=== PATIENT | male | born 1935 | race Caucasian/White ===

== ENCOUNTER 2019-10-16 05:42 | Outpatient (RCR) | payer MEDICARE, SELFPAY | END 2019-11-05 00:01 | LOC: ONCMED 05:42 | PROVIDERS: Family Provider Family Medicine; Visit Provider Internal Medicine Hematology & Oncology | DX: Z51.11 Encounter for antineoplastic chemotherapy (principal); C25.8 Malignant neoplasm of overlapping sites of pancreas; C77.2 Secondary and unspecified malignant neoplasm of intra-abdominal lymph nodes; D72.829 Elevated white blood cell count, unspecified; E11.9 Type 2 diabetes mellitus without complications; Z79.899 Other long term (current) drug therapy; Z79.84 Long term (current) use of oral hypoglycemic drugs | CPT/HCPCS: 80053; 85007; 85025; 96367; 96368; 96372; 96375; 96413; 96415; 96416; 96417; 96523; 99214; J0640; J1100; J1453; J1642 ×2; J2469; J2505; J9206 ×2; J9263 ×2 ==

== ENCOUNTER 2019-11-20 05:51 | Outpatient (RCR) | payer MEDICARE, SELFPAY ==
[2019-11-20 09:45] LABS: Basophils # 0.1 10^3/uL (0.0-0.1); Basophils % 1.1 %; Eosinophils # 0.2 10^3/uL (0.0-0.8); Eosinophils % 4.5 %; Hematocrit 34.8 % (42.0-52.0); Hemoglobin 10.9 g/dL (11.7-16.6); Lymphocytes # 1.4 10^3/uL (0.8-4.8); Lymphocytes % 29.9 %; Mean Corpuscular HGB Conc 31.3 g/dL (30.0-36.0); Mean Corpuscular Hemoglobin 29.7 pg (28.0-34.0); Mean Corpuscular Volume 94.8 fL (80-94); Mean Platelet Volume 10.5 fL (7.4-10.4); Monocytes # 0.4 10^3/uL (0.2-0.9); Monocytes % 9.1 %; Neutrophils # 2.6 10^3/uL (1.8-7.7); Neutrophils % 55.2 %; Nucleated Red Blood Cells % 0 %; Platelet Count 147 10^3/cmm (130-400); Red Blood Count 3.67 10^6/uL (4.1-5.3); Red Cell Distribution Width 14.8 % (12.1-15.1); White Blood Count 4.7 10^3/uL (4.0-10.0)
[2019-11-20 10:07] LABS: Alanine Aminotransferase 27 U/L (0-41); Alkaline Phosphatase 93 IU/L (40-130); Aspartate Amino Transferase 41 U/L (0-40); Blood Urea Nitrogen 12 mg/dL (8-23); Calcium 8.9 mg/Dl (8.8-10.2); Carbon Dioxide 23 mmol/L (22-29); Chloride 105 mmol/L (98-107); Globulin 2.1 g/dL (1.3-4.6); Glucose 103 mg/dL (74-106); Sodium 139 mmol/L (136-145); Total Bilirubin 0.4 mg/dL (0.15-1.2); Total Protein 6.1 g/dL (6.6-8.7)
== END 2019-12-06 23:59 | disposition home or self-care (01) ==
LOC: ONCMED 05:51
PROVIDERS: Family Provider Family Medicine; Visit Provider Internal Medicine Hematology & Oncology
DX: C25.0 Malignant neoplasm of head of pancreas (principal); E11.9 Type 2 diabetes mellitus without complications; D64.9 Anemia, unspecified; Z79.84 Long term (current) use of oral hypoglycemic drugs; Z90.410 Acquired total absence of pancreas; Z92.21 Personal history of antineoplastic chemotherapy
CPT/HCPCS: 80053; 85025; 96374; 99214

== ENCOUNTER 2019-12-20 06:01 | Outpatient (CLI) | payer MEDICARE, SELFPAY | END 2019-12-20 06:02 | disposition home or self-care (01) | LOC: ONCMED 10:23 | PROVIDERS: Family Provider Family Medicine; Visit Provider Internal Medicine Hematology & Oncology | DX: Z76.89 Persons encountering health services in other specified circumstances (principal) ==

== ENCOUNTER 2020-01-17 10:09 | Outpatient (CLI) | payer MEDICARE, SELFPAY ==
--- NOTE | 2020-02-20 14:46 | ONC FU_ITS ---
Dr. Mitchell follow up note Patient: JOHN MOBLEY Unit #: [id number]: 1935 Dicatated By: Najma Mitchell M.D.Date of Visit:Feb 20, 2020 Onc Med Follow-up/Prog Note History of Present Illness: Mr. 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 As per patient CT scan of chest abdomen pelvis done on 07/19/2019 showed no evidence of metastatic disease and previously seen pulmonary nodules are stable Came for follow-up, denies any specific complaints, no fever or chills, no nausea or vomiting, no abdominal pain, no hemoptysis or hematemesis, no jaundice. Medications: Gabapentin 1 Capsule (of 300 mg) Oral t.i.d., LORazepam 0.5 - 1 Tablet (of 1 mg) Oral q 6 hours PRN, metFORMIN HCl 1 Tablet (of 500 mg) Oral b.i.d., Prochlorperazine Maleate 1 Tablet (of 10 mg) Oral q 6 hours, Simvastatin 1 Tablet (of 10 mg) Oral daily Allergies: pollen Review of Systems: Constitutional - Appetite is good and weight is stable. No fever, chills, hot flashes, or night sweats. Energy level is good, ENMT - No sinus congestion/drainage. No mouth sores. No sore throat or difficulty swallowing, Hematologic/Lymphatic - Positive for easy bruising and bleeding, Respiratory - No shortness of breath. No cough. No pleuritic pain or hemoptysis, Cardiovascular - No angina pain. No palpitations, Gastrointestinal - No nausea or vomiting. No heartburn or acid reflux. No diarrhea or constipation. No blood in the stool or black stools. Positive for hemorrhoids, Genitourinary (M) - No dysuria or hematuria. No urinary frequency. No urgency or incontinence, Musculoskeletal - No joint or bone pain, Neurologic - No headache or dizziness. No numbness/paresthesias or other focal neurologic symptoms, Psychiatric - No anxiety or depression. No insomnia. Vital Signs: Performed on Feb 20, 2020 14:26 Height - 67.50 in Weight - 152.0 lbs (HIGH) BSA - 1.81 sq.m BMI - 23.46 Temperature - 96.9 F (LOW) Pulse - 64 /min Respiration - 17 /min BP - 148/83 mm(hg) (HIGH) O2 Sat - 97 % Pain - 0 Performance Status: 0 - Fully active, able to carry on all predisease activities without restrictions. (ECOG) Physical Examination: ENMT - denies any mouth sores, Respiratory - Lungs are clear, Cardiovascular - Regular rate and rhythm, Abdomen - denies any abdominal pain or fullness, Extremities - no visible edema or rash. Lab/Imaging: Test performed on Nov 20, 2019 09:23 Glucose 103 mg/dL BUN 12 mg/dL Creatinine 0.8 mg/dL Cr Clearance (Est) 66.50 mL/min Sodium 139 mmol/L Potassium 4.0 mmol/L Chloride 105 mmol/L CO2 23 mmol/L Calcium 8.9 mg/dL Protein, Total 6.1 g/dL Albumin 4.0 g/dL Globulin 2.1 g/dL Bilirubin, Total 0.4 mg/dL Alkaline Phosphatase 93 IU/L AST (SGOT) 41 IU/L ALT (SGPT) 27 IU/L WBC 4.7 10 3/uL RBC 3.67 10^12/L HGB 10.9 g/dL HCT 34.8 % MCV 94.8 fL MCH 29.7 pg MCHC 31.3 g/dL Platelet Count 147 10^9/L RDW 14.8 % MPV 10.5 fL Lymphocytes 1.4 10^9/L Neutrophils 0.1 10 3/uL Monocytes 0.4 10^9/L Eosinophils 0.2 10^9/L Basophils 0.1 10^9/L Neutrophil % 4.5 % Manual Lymphocytes 29.9 % Manual Monocytes 9.1 % Manual Eosinophils 4.5 % Manual Basophils 1.1 % NRBCs 0.0 /100 WBC Test performed on Nov 07, 2019 10:04 Cholesterol, Total 121 mg/dL HDL Cholesterol 66 mg/dL LDL Cholesterol 39 mg/dL VLDL Cholesterol 16 mg/dL Triglycerides 79 mg/dL Test performed on Oct 14, 2019 08:18 Anion Gap 16.9 Manual Segs % 55 % Manual Bands % 29.0 % Metamyelocytes % 2.0 % CBC Slide Review SLIDE REVIEW PERFORM Platelet Estimate NORMAL Manual Neutrophils Abs 25.1 10 3/cmm Manual Lymphocytes Abs 0.9 10 3/cmm Manual Monocytes Abs 3.0 10 3/cmm Manual Eosinophils Abs 0.2 10 3/cmm Test performed on Sep 30, 2019 08:23 Lymphocyte % 7.8 % Monocyte % 7.5 % Eosinophil % 0.2 % Basophils % 0.6 % Impression: Moderately differentiated adenocarcinoma of pancreatic head, involving duodenum, with pathology questionable low-grade and high-grade dysplasia with focal signet ring features, suspicious for second bile duct cancer status post Whipple's done on 03/21/2019 final pathology report showed Ductal adenocarcinoma, moderately differentiated, size of tumor 1.6 cm pT1c, 2 lymph node positive for cough metastatic disease pN1 Liver biopsy, segment 3, excision shows no evidence of carcinoma. pT1c,N1,Mo next Started on adjuvant chemotherapy with modified dose (20% dose reduction because of advanced age) FOLFIRINOX biweekly ???12 Completed on 10/14/2019 [id number] diabetes on metformin Plan: Discussed with patient regarding his labs white blood count 5.8 hemoglobin 12.4 crit 39 platelets 179,000 CMP within normal limits Clinically, patient is doing well, with no signs symptoms suggestive of recurrence of disease his follow-up lab workup looks reasonable. We'll continue to monitor and he will return to clinic in 3 months with CBC CMP and CA 19???9 and follow-up CT PET scan to assess disease status and pulmonary nodule seen on CT scan of chest done on 07/19/2019 in the meantime continue monthly port maintenance Signed By: Najma Mitchell M.D. <<Signature on File>>
== END 2020-01-17 15:00 | disposition home or self-care (01) ==
PROVIDERS: Family Provider Family Medicine; Visit Provider Internal Medicine Hematology & Oncology
DX: Z01.89 Encounter for other specified special examinations (principal)
CPT/HCPCS: 36591; 96523

== ENCOUNTER 2020-02-20 12:53 | Outpatient (CLI) | payer MEDICARE, SELFPAY ==
[2020-02-20 13:35] LABS: Basophils # 0.1 10^3/uL (0.0-0.1); Basophils % 0.9 %; Eosinophils # 0.2 10^3/uL (0.0-0.8); Eosinophils % 3.6 %; Hemoglobin 12.4 g/dL (11.7-16.6); Lymphocytes % 34.7 %; Mean Corpuscular HGB Conc 31.8 g/dL (30.0-36.0); Mean Corpuscular Hemoglobin 28.9 pg (28.0-34.0); Mean Corpuscular Volume 90.9 fL (80-94); Mean Platelet Volume 9.8 fL (7.4-10.4); Monocytes # 0.5 10^3/uL (0.2-0.9); Monocytes % 8.5 %; Neutrophils % 52.1 %; Nucleated Red Blood Cells % 0 %; Platelet Count 179 10^3/cmm (130-400); Red Blood Count 4.29 10^6/uL (4.1-5.3); Red Cell Distribution Width 13.2 % (12.1-15.1); White Blood Count 5.8 10^3/uL (4.0-10.0)
[2020-02-20 13:53] LABS: Alanine Aminotransferase 23 U/L (0-41); Alkaline Phosphatase 72 IU/L (40-130); Anion Gap 14.5 (5-19); Aspartate Amino Transferase 28 U/L (0-40); Blood Urea Nitrogen 17 mg/dL (8-23); Carbon Dioxide 26 mmol/L (22-29); Chloride 101 mmol/L (98-107); Globulin 2.5 g/dL (1.3-4.6); Glucose 90 mg/dL (65-115); Osmolality Calculated 282 mOsm/kg (285-295); Potassium 3.5 mmol/L (3.5-5.1); Sodium 138 mmol/L (136-145); Total Bilirubin 0.7 mg/dL (0.15-1.2); Total Protein 6.5 g/dL (6.6-8.7)
--- NOTE | 2020-05-21 13:53 | ONC FU_ITS ---
Dr. Mitchell follow up note Patient: JOHN MOBLEY Unit #: [id number]: 1935 Dicatated By: Najma Mitchell M.D.Date of Visit:May 21, 2020 Onc Med Follow-up/Prog Note History of Present Illness: Mr. 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 As per patient CT scan of chest abdomen pelvis done on 07/19/2019 showed no evidence of metastatic disease and previously seen pulmonary nodules are stable Came for follow-up, denies any specific complaints, no fever or chills, no nausea or vomiting, no diarrhea or constipation, no jaundice no abdominal pain appetite is good, gaining weight Medications: Atenolol-Chlorthalidone 1 Tablet (of 50-25 mg) Oral daily, Gabapentin 1 Capsule (of 300 mg) Oral four times a day, LORazepam 0.5 - 1 Tablet (of 1 mg) Oral q 6 hours PRN, metFORMIN HCl 1 Tablet (of 500 mg) Oral b.i.d., Prochlorperazine Maleate 1 Tablet (of 10 mg) Oral q 6 hours, Simvastatin 1 Tablet (of 10 mg) Oral daily Allergies: pollen Review of Systems: Constitutional - Appetite is good and weight is stable. No fever, chills, hot flashes, or night sweats. Energy level is good, ENMT - No sinus congestion/drainage. No mouth sores. No sore throat or difficulty swallowing, Hematologic/Lymphatic - Positive for easy bruising and bleeding, Respiratory - No shortness of breath. No cough. No pleuritic pain or hemoptysis, Cardiovascular - No angina pain. No palpitations, Gastrointestinal - No nausea or vomiting. No heartburn or acid reflux. No diarrhea or constipation. No blood in the stool or black stools. Positive for hemorrhoids, Genitourinary (M) - No dysuria or hematuria. No urinary frequency. No urgency or incontinence, Musculoskeletal - No joint or bone pain, Neurologic - No headache or dizziness. No numbness/paresthesias or other focal neurologic symptoms, Psychiatric - No anxiety or depression. No insomnia. Vital Signs: Performed on May 21, 2020 13:24 Height - 67.50 in Weight - 155.2 lbs (HIGH) BSA - 1.83 sq.m BMI - 23.95 Temperature - 98.4 F Pulse - 59 /min (LOW) Respiration - 20 /min BP - 173/70 mm(hg) (HIGH) O2 Sat - 99 % Pain - 0 Performance Status: 0 - Fully active, able to carry on all predisease activities without restrictions. (ECOG) Physical Examination: ENMT - No mouth sores, no thrush, no jaundice, Respiratory - Lungs are clear, Cardiovascular - Regular rate and rhythm of heart, Abdomen - Soft, bowel sounds present, Extremities - No visible edema. Lab/Imaging: Test performed on Feb 20, 2020 13:19 Sodium 138 mmol/L Potassium 3.5 mmol/L Chloride 101 mmol/L CO2 26 mmol/L Anion Gap 14.5 BUN 17 mg/dL Creatinine 1.1 mg/dL Cr Clearance (Est) 48.3700 mL/min Glucose 90 mg/dL Calcium 9.0 mg/dL Protein, Total 6.5 g/dL Albumin 4.0 g/dL Globulin 2.5 g/dL Bilirubin, Total 0.7 mg/dL ALT (SGPT) 23 U/L AST (SGOT) 28 U/L Alkaline Phosphatase 72 IU/L WBC 5.8 10 3/uL RBC 4.29 10 6/uL HGB 12.4 g/dL HCT 39.0 % MCV 90.9 fL MCH 28.9 pg MCHC 31.8 g/dL RDW 13.2 % Platelet Count 179 10 3/cmm MPV 9.8 fL Neutrophils 3.0 10 3/uL Lymphocytes 2.0 10 3/uL Monocytes 0.5 10 3/uL Eosinophils 0.2 10 3/uL Basophils 0.1 10 3/uL Neutrophil % 52.1 % Lymphocyte % 34.7 % Monocyte % 8.5 % Eosinophil % 3.6 % Basophils % 0.9 % Impression: Moderately differentiated adenocarcinoma of pancreatic head, involving duodenum, with pathology questionable low-grade and high-grade dysplasia with focal signet ring features, suspicious for second bile duct cancer status post Whipple's done on 03/21/2019 final pathology report showed Ductal adenocarcinoma, moderately differentiated, size of tumor 1.6 cm pT1c, 12/28 lymph node positive for cough metastatic disease pN1 Liver biopsy, segment 3, excision shows no evidence of carcinoma. pT1c,N1,Mo next Started on adjuvant chemotherapy with modified dose (20% dose reduction because of advanced age) FOLFIRINOX biweekly ???12 Completed on 10/14/2019 [id number] diabetes on metformin Plan: Discussed with patient regarding his labs white blood count 7.4 hemoglobin 13.8 crit 43.4 platelets 204,000 CMP within normal limits CA 19???9 30.13 Clinically, patient doing well with no signs symptom suggestive of recurrence of disease, follow-up lab work-up is within normal range. Follow-up CT PET scan was ordered but insurance denied, now will consider follow-up CT scan of abdomen pelvis and flush his Port-A-Cath today and then he will return to clinic 1 month for port flush and with follow-up CT scan of abdomen pelvis. Patient is also considering Port-A-Cath removal if CT scan of abdomen pelvis looks normal Signed By: Najma Mitchell M.D. <<Signature on File>>
== END 2020-02-20 12:54 | disposition home or self-care (01) ==
PROVIDERS: Visit Provider Internal Medicine Hematology & Oncology
DX: C25.0 Malignant neoplasm of head of pancreas (principal); R91.1 Solitary pulmonary nodule; E11.9 Type 2 diabetes mellitus without complications; Z92.21 Personal history of antineoplastic chemotherapy; Z79.84 Long term (current) use of oral hypoglycemic drugs
CPT/HCPCS: 36415; 80053; 85025; 96523; G0463

== ENCOUNTER 2020-05-20 07:41 | Outpatient (CLI) | payer MEDICARE, SELFPAY ==
[2020-05-20 11:37] LABS: Basophils # 0.1 10^3/uL (0.0-0.1); Basophils % 0.7 %; Eosinophils # 0.2 10^3/uL (0.0-0.8); Eosinophils % 2.6 %; Hematocrit 43.4 % (42.0-52.0); Hemoglobin 13.8 g/dL (11.7-16.6); Lymphocytes # 2.9 10^3/uL (0.8-4.8); Lymphocytes % 38.6 %; Mean Corpuscular HGB Conc 31.8 g/dL (30.0-36.0); Mean Corpuscular Hemoglobin 29.4 pg (28.0-34.0); Mean Corpuscular Volume 92.5 fL (80-94); Mean Platelet Volume 10.6 fL (7.4-10.4); Monocytes # 0.6 10^3/uL (0.2-0.9); Monocytes % 8.4 %; Neutrophils # 3.68 10^3/uL (1.8-7.7); Neutrophils % 49.6 %; Nucleated Red Blood Cells % 0 %; Platelet Count 204 10^3/cmm (130-400); Red Blood Count 4.69 10^6/uL (4.1-5.3); Red Cell Distribution Width 13.5 % (12.1-15.1); White Blood Count 7.4 10^3/uL (4.0-10.0)
[2020-05-20 12:15] LABS: Alanine Aminotransferase 25 U/L (0-41); Albumin Level 4.5 g/dL (3.5-5.2); Alkaline Phosphatase 67 IU/L (40-130); Anion Gap 13.7 (5-19); Aspartate Amino Transferase 27 U/L (0-40); Blood Urea Nitrogen 17 mg/dL (8-23); Calcium 8.6 mg/dL (8.5-10.5); Cancer Antigen 19 9 30.13 U/mL (0-35); Carbon Dioxide 29 mmol/L (22-29); Chloride 98 mmol/L (98-107); Globulin 3.1 g/dL (1.3-4.6); Glucose 104 mg/dL (65-115); Osmolality Calculated 281 mOsm/kg (285-295); Potassium 3.7 mmol/L (3.5-5.1); Sodium 137 mmol/L (136-145); Total Bilirubin 0.7 mg/dL (0.15-1.2); Total Protein 7.6 g/dL (6.6-8.7)
== END 2020-05-20 07:42 | disposition home or self-care (01) ==
LOC: ONCMED 12:00
PROVIDERS: Visit Provider Internal Medicine Hematology & Oncology
DX: C25.0 Malignant neoplasm of head of pancreas (principal); E11.9 Type 2 diabetes mellitus without complications
CPT/HCPCS: 36415; 80053; 85025; 86301

== ENCOUNTER 2020-05-21 13:08 | Outpatient (CLI) | payer MEDICARE, SELFPAY | END 2020-05-21 13:09 | disposition home or self-care (01) | LOC: ONCMED 13:13 | PROVIDERS: PCP Family Medicine; Visit Provider Internal Medicine Hematology & Oncology | DX: Z08 Encounter for follow-up examination after completed treatment for malignant neoplasm (principal); Z85.07 Personal history of malignant neoplasm of pancreas; Z45.2 Encounter for adjustment and management of vascular access device; E11.9 Type 2 diabetes mellitus without complications; Z79.84 Long term (current) use of oral hypoglycemic drugs; Z90.410 Acquired total absence of pancreas; Z92.21 Personal history of antineoplastic chemotherapy | CPT/HCPCS: 96523; G0463 ==

== ENCOUNTER 2020-06-04 10:48 | Outpatient (CLI) | payer MEDICARE, SELFPAY ==
--- NOTE | 2020-06-04 10:54 | CT_ITS ---
WS: [id number] CT ABDOMEN PELVIS TECHNIQUE: Contrast-enhanced CT of the abdomen and pelvis with coronal and sagittal reformatted image s. CLINICAL INFORMATION: PANCREATIC CANCER COMPARISON: Outside examinations CT 9 13,019, 6 26,019, 3 ,019. Outside reports not available. [facility] MRI February 06, 2019. DLP: [id number] scans at [facility] use at least one of these dose optimization techniques: automat ed exposure control; mA and/or kV adjustment per patient size (includes targeted exams where dose is matched to clinical indication); or iterative reconstruction. FINDINGS: Mild diffuse fatty infiltration liver. Prior cholecystectomy. Small amount of incidental pneumobilia. Postoperative changes involving the stomach. Small hepatic lesions previously described the largest in the caudate measuring 10 mm appears unchanged. Most of these appear to represent hepatic cysts but some are too small to characterize. Portal veins and splenic vein are patent. Fatty atrophy of the pancreas. Lobulated cystic lesions involving the tail of the pancreas unchanged in appearance. Cystic dilatation of the pancreatic duct. Postoperative changespancreatic head. No erica dence of recurrent pancreatic head mass. Adrenal glands are normal. Stable incidental right renal cysts. No hydronephrosis. Normal caliber abd ominal aorta. No abdominal lymphadenopathy. Slightly aneurysmal infrarenal abdominal aorta. 3.1 x 3.4 cm AP by transverse. Small amount of peripheral mural thrombus. Lobulated aneurysm appears unchanged . Postoperative changes left OSIEL. This degrades images in the pelvis. Fluid-filled sigmoid colon otherw ise normal appearance. Prostate calcifications. Mild diffuse bladder wall thickening with more focal and plaque-like thickening involving the anterior ventral bladder wall eccentric to the right. Recomm end further evaluation with cystoscopy. Plaque-like thickening measures 14 x 12 mm. TCC is not exclud ed. This is similar in appearance compared to 2019. Lung bases are well aerated. Lumbar scoliosis convex right. Disc space narrowing worse at L3-4. CT/CT abdomen pelvis w con* [id number] IMPRESSION: 1. Postoperative changes involving the pancreatic head. No evidence of pancrea tic head recurrence or residual mass. 2. 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 3. Mild lobulated pancreatic ductal dilatation unchanged. 4. Postoperative changes involving the stomach with cholecystectomy and pancre atic head. 5. Stable low-attenuation lesions in the liver unchanged and most likely repre sent hepatic cysts. Most are too small to characterize. Largest lesion in the c audate measuring 10 mm is stable. 6. No abdominal or pelvic lymphadenopathy. 7. Stable infrarenal abdominal aortic aneurysm. 8. Plaque-like enhancement involving the anterior ventral bladder wall asymmet brayden in appearance. Transitional cell carcinoma not excluded and recommend furth er evaluation with cystoscopy. This is similar in appearance to 9 13,019. 9. Left OSIEL degrades images in the pelvis.
[2020-06-04 11:32] LABS: Basophils # 0.1 10^3/uL (0.0-0.1); Basophils % 0.9 %; Eosinophils # 0.1 10^3/uL (0.0-0.8); Eosinophils % 1.7 %; Hematocrit 41.5 % (42.0-52.0); Hemoglobin 13.1 g/dL (11.7-16.6); Lymphocytes % 29.3 %; Mean Corpuscular HGB Conc 31.6 g/dL (30.0-36.0); Mean Corpuscular Hemoglobin 29.8 pg (28.0-34.0); Mean Corpuscular Volume 94.5 fL (80-94); Mean Platelet Volume 9.5 fL (7.4-10.4); Monocytes # 0.5 10^3/uL (0.2-0.9); Monocytes % 7.1 %; Neutrophils # 4.05 10^3/uL (1.8-7.7); Neutrophils % 60.8 %; Nucleated Red Blood Cells % 0 %; Platelet Count 184 10^3/cmm (130-400); Red Blood Count 4.39 10^6/uL (4.1-5.3); Red Cell Distribution Width 13.2 % (12.1-15.1); White Blood Count 6.7 10^3/uL (4.0-10.0)
[2020-06-04 11:56] LABS: Alanine Aminotransferase 22 U/L (0-41); Albumin Level 4.3 g/dL (3.5-5.2); Alkaline Phosphatase 68 IU/L (40-130); Anion Gap 15.7 (5-19); Aspartate Amino Transferase 25 U/L (0-40); Blood Urea Nitrogen 17 mg/dL (8-23); Calcium 8.5 mg/dL (8.5-10.5); Cancer Antigen 19 9 27.14 U/mL (0-35); Carbon Dioxide 26 mmol/L (22-29); Chloride 100 mmol/L (98-107); Globulin 2.8 g/dL (1.3-4.6); Glucose 106 mg/dL (65-115); Osmolality Calculated 283 mOsm/kg (285-295); Potassium 3.7 mmol/L (3.5-5.1); Sodium 138 mmol/L (136-145); Total Bilirubin 0.8 mg/dL (0.15-1.2); Total Protein 7.1 g/dL (6.6-8.7)
[2020-06-04] MEDS: iohexol 300 mg/mL 100 mL Btl IV (12:14)
[2020-06-04] MEDS: iohexol 300 mg/mL 50 mL Btl IV (12:15)
== END 2020-06-04 10:49 | disposition home or self-care (01) ==
LOC: RAD 10:52
PROVIDERS: PCP Family Medicine; Visit Provider Internal Medicine Hematology & Oncology
DX: C25.0 Malignant neoplasm of head of pancreas (principal); K86.89 Other specified diseases of pancreas; I71.4 Abdominal aortic aneurysm, without rupture; Z96.642 Presence of left artificial hip joint
CPT/HCPCS: 36415; 74177; 80053; 85025; 86301

== ENCOUNTER 2020-06-08 13:49 | Outpatient (CLI) | payer MEDICARE, SELFPAY ==
--- NOTE | 2020-06-08 14:35 | ONC FU_ITS ---
Dr. Mitchell follow up note Patient: Que Mobley Unit #: [id number]: 1935 Dicatated By: Najma Mitchell M.D.Date of Visit:Jun 08, 2020 Onc Med Follow-up/Prog Note History of Present Illness: Mr. 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 As per patient CT scan of chest abdomen pelvis done on 07/19/2019 showed no evidence of metastatic disease and previously seen pulmonary nodules are stable Follow-up CT scan of abdomen pelvis done on June 04, 2020 showed postoperative changes involving pancreatic head. No evidence of pancreatic head recurrence or residual mass. 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 Postoperative changes involving stomach and cholecystectomy and pancreatic head. Low attenuation lesions in the liver unchanged and most likely represent hepatic cysts. No abdominal or pelvic lymphadenopathy. Stable infrarenal abdominal aortic aneurysm. Plaque-like enhancement involving anterior ventral bladder wall asymmetric in appearance transitional cell carcinoma not excluded. This is similar in appearance to July 2019 scan. Came for follow-up, denies any specific complaints, no abdominal pain, no jaundice, no nausea or vomiting no diarrhea or constipation, appetite is good. No hematuria or dysuria. No new bony pains. No fever or chills Medications: Atenolol-Chlorthalidone 1 Tablet (of 50-25 mg) Oral daily, Gabapentin 1 Capsule (of 300 mg) Oral four times a day, LORazepam 0.5 - 1 Tablet (of 1 mg) Oral q 6 hours PRN, metFORMIN HCl 1 Tablet (of 500 mg) Oral b.i.d., Prochlorperazine Maleate 1 Tablet (of 10 mg) Oral q 6 hours, Simvastatin 1 Tablet (of 10 mg) Oral daily Allergies: pollen Review of Systems: Constitutional - Appetite is good and weight is stable. No fever, chills, hot flashes, or night sweats. Energy level is good, ENMT - No sinus congestion/drainage. No mouth sores. No sore throat or difficulty swallowing, Hematologic/Lymphatic - Positive for easy bruising and bleeding, Respiratory - No shortness of breath. No cough. No pleuritic pain or hemoptysis, Cardiovascular - No angina pain. No palpitations, Gastrointestinal - No nausea or vomiting. No heartburn or acid reflux. No diarrhea or constipation. No blood in the stool or black stools. Positive for hemorrhoids, Genitourinary (M) - No dysuria or hematuria. No urinary frequency. No urgency or incontinence, Musculoskeletal - No joint or bone pain, Neurologic - No headache or dizziness. No numbness/paresthesias or other focal neurologic symptoms, Psychiatric - No anxiety or depression. No insomnia. Vital Signs: Performed on Jun 08, 2020 13:57 Height - 67.50 in Weight - 154.8 lbs (LOW) BSA - 1.82 sq.m BMI - 23.89 Temperature - 98.2 F (LOW) Pulse - 44 /min (LOW) Respiration - 20 /min BP - 140/68 mm(hg) O2 Sat - 97 % Pain - 0 Performance Status: 0 - Fully active, able to carry on all predisease activities without restrictions. (ECOG) Physical Examination: ENMT - No mouth sores, no thrush, no jaundice, Respiratory - Lungs are clear, Cardiovascular - Regular rate and rhythm of heart, Abdomen - Soft, bowel sounds present, Extremities - No visible edema. Lab/Imaging: Test performed on Jun 04, 2020 11:15 Sodium 138 mmol/L Potassium 3.7 mmol/L Chloride 100 mmol/L CO2 26 mmol/L Anion Gap 15.7 BUN 17 mg/dL Creatinine 1.0 mg/dL Cr Clearance (Est) 53.2000 mL/min Glucose 106 mg/dL Calcium 8.5 mg/dL Protein, Total 7.1 g/dL Albumin 4.3 g/dL Globulin 2.8 g/dL Bilirubin, Total 0.8 mg/dL ALT (SGPT) 22 U/L AST (SGOT) 25 U/L Alkaline Phosphatase 68 IU/L WBC 6.7 10 3/uL RBC 4.39 10 6/uL HGB 13.1 g/dL HCT 41.5 % MCV 94.5 fL MCH 29.8 pg MCHC 31.6 g/dL RDW 13.2 % Platelet Count 184 10 3/cmm MPV 9.5 fL Neutrophils 4.05 10 3/uL Lymphocytes 2.0 10 3/uL Monocytes 0.5 10 3/uL Eosinophils 0.1 10 3/uL Basophils 0.1 10 3/uL Neutrophil % 60.8 % Lymphocyte % 29.3 % Monocyte % 7.1 % Eosinophil % 1.7 % Basophils % 0.9 % NRBC % 0 % CA 19-9 27.14 U/mL Impression: Moderately differentiated adenocarcinoma of pancreatic head, involving duodenum, with pathology questionable low-grade and high-grade dysplasia with focal signet ring features, suspicious for second bile duct cancer status post Whipple's done on 03/21/2019 final pathology report showed Ductal adenocarcinoma, moderately differentiated, size of tumor 1.6 cm pT1c, 12/28 lymph node positive for cough metastatic disease pN1 Liver biopsy, segment 3, excision shows no evidence of carcinoma. pT1c,N1,Mo next Started on adjuvant chemotherapy with modified dose (20% dose reduction because of advanced age) FOLFIRINOX biweekly ???12 Completed on 10/14/2019 [id number] diabetes on metformin Plan: Discussed with patient regarding his labs white blood count 6.7 hemoglobin 13.1 crit 41.5 platelets 184,000 CMP within normal limits CA 19???9 27.14 and follow-up CT scan of abdomen pelvis shows no evidence of recurrence. But plaque-like enhancement involving the anterior ventral bladder wall stable when compared with CT scan done in July 2019 but concerned about transitional cell carcinoma, cystoscopy recommended Clinically, patient doing well with no new signs symptom suggestive of recurrence of disease follow-up CT scan of abdomen pelvis shows no evidence of recurrence of disease but persistent stable abnormality in the urinary bladder wall , Lab work-up including tumor marker within normal range. Patient wants to get his Port-A-Cath out. But wants to wait till urology evaluation regarding urinary bladder abnormality. We will refer him to Dr. Castillo for possible cystoscopy evaluation. Patient return to clinic in 1 month for further discussion and if urology evaluation shows no abnormality then will consider port removal and follow him every 3 months and first then 4 to 6 months afterwards Signed By: Najma Mitchell M.D. <<Signature on File>>
== END 2020-06-08 13:50 | disposition home or self-care (01) ==
LOC: ONCMED 13:52
PROVIDERS: PCP Family Medicine; Visit Provider Internal Medicine Hematology & Oncology
DX: Z08 Encounter for follow-up examination after completed treatment for malignant neoplasm (principal); Z90.411 Acquired partial absence of pancreas; E11.9 Type 2 diabetes mellitus without complications; Z79.84 Long term (current) use of oral hypoglycemic drugs; Z85.07 Personal history of malignant neoplasm of pancreas
CPT/HCPCS: 99214

== ENCOUNTER 2020-07-06 13:43 | Outpatient (CLI) | payer MEDICARE, SELFPAY ==
[2020-07-06 14:34] LABS: Basophils # 0.1 10^3/uL (0.0-0.1); Basophils % 0.8 %; Eosinophils # 0.2 10^3/uL (0.0-0.8); Eosinophils % 2.2 %; Hematocrit 39.7 % (42.0-52.0); Hemoglobin 12.8 g/dL (11.7-16.6); Lymphocytes # 2.6 10^3/uL (0.8-4.8); Lymphocytes % 33.9 %; Mean Corpuscular HGB Conc 32.2 g/dL (30.0-36.0); Mean Corpuscular Hemoglobin 29.2 pg (28.0-34.0); Mean Corpuscular Volume 90.6 fL (80-94); Monocytes # 0.6 10^3/uL (0.2-0.9); Monocytes % 7.8 %; Neutrophils # 4.29 10^3/uL (1.8-7.7); Nucleated Red Blood Cells % 0 %; Platelet Count 186 10^3/cmm (130-400); Red Blood Count 4.38 10^6/uL (4.1-5.3); Red Cell Distribution Width 13.1 % (12.1-15.1); White Blood Count 7.8 10^3/uL (4.0-10.0)
[2020-07-06 14:52] LABS: Alanine Aminotransferase 20 U/L (0-41); Albumin Level 4.2 g/dL (3.5-5.2); Alkaline Phosphatase 69 IU/L (40-130); Anion Gap 16.8 (5-19); Aspartate Amino Transferase 21 U/L (0-40); Blood Urea Nitrogen 19 mg/dL (8-23); Calcium 8.4 mg/dL (8.5-10.5); Carbon Dioxide 23 mmol/L (22-29); Chloride 102 mmol/L (98-107); Globulin 2.9 g/dL (1.3-4.6); Glucose 93 mg/dL (65-115); Osmolality Calculated 282 mOsm/kg (285-295); Potassium 3.8 mmol/L (3.5-5.1); Sodium 138 mmol/L (136-145); Total Bilirubin 0.7 mg/dL (0.15-1.2); Total Protein 7.1 g/dL (6.6-8.7)
--- NOTE | 2020-07-06 15:52 | ONC FU_ITS ---
Dr. Mitchell follow up note Patient: Que Mobley Unit #: [id number]: 1935 Dicatated By: Najma Mitchell M.D.Date of Visit:Jul 06, 2020 Onc Med Follow-up/Prog Note History of Present Illness: Mr. 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 As per patient CT scan of chest abdomen pelvis done on 07/19/2019 showed no evidence of metastatic disease and previously seen pulmonary nodules are stable Follow-up CT scan of abdomen pelvis done on June 04, 2020 showed postoperative changes involving pancreatic head. No evidence of pancreatic head recurrence or residual mass. 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 Postoperative changes involving stomach and cholecystectomy and pancreatic head. Low attenuation lesions in the liver unchanged and most likely represent hepatic cysts. No abdominal or pelvic lymphadenopathy. Stable infrarenal abdominal aortic aneurysm. Plaque-like enhancement involving anterior ventral bladder wall asymmetric in appearance transitional cell carcinoma not excluded. This is similar in appearance to July 2019 scan. Came for follow-up, denies any specific complaints, no fever chills, no nausea or vomiting, no melena hematochezia, no hematuria. Patient scheduled for cystoscopy on July 09, 2020 and he is considering to reschedule it because of personal reasons Medications: Atenolol-Chlorthalidone 1 Tablet (of 50-25 mg) Oral daily, Gabapentin 1 Capsule (of 300 mg) Oral four times a day, LORazepam 0.5 - 1 Tablet (of 1 mg) Oral q 6 hours PRN, metFORMIN HCl 1 Tablet (of 500 mg) Oral b.i.d., Prochlorperazine Maleate 1 Tablet (of 10 mg) Oral q 6 hours, Simvastatin 1 Tablet (of 10 mg) Oral daily Allergies: pollen Review of Systems: Constitutional - Appetite is good and weight is stable. No fever, chills, hot flashes, or night sweats. Energy level is good, ENMT - No sinus congestion/drainage. No mouth sores. No sore throat or difficulty swallowing, Hematologic/Lymphatic - Positive for easy bruising and bleeding, Respiratory - No shortness of breath. No cough. No pleuritic pain or hemoptysis, Cardiovascular - No angina pain. No palpitations, Gastrointestinal - No nausea or vomiting. No heartburn or acid reflux. No diarrhea or constipation. No blood in the stool or black stools. Positive for hemorrhoids, Genitourinary (M) - No dysuria or hematuria. No urinary frequency. No urgency or incontinence, Musculoskeletal - No joint or bone pain, Neurologic - No headache or dizziness. No numbness/paresthesias or other focal neurologic symptoms, Psychiatric - No anxiety or depression. No insomnia. Vital Signs: Performed on Jul 06, 2020 14:58 Height - 67.50 in Weight - 155.6 lbs (HIGH) BSA - 1.83 sq.m BMI - 24.01 Temperature - 97.7 F (LOW) Pulse - 43 /min (LOW) Respiration - 20 /min BP - 152/70 mm(hg) (HIGH) O2 Sat - 97 % Pain - 0 Performance Status: 0 - Fully active, able to carry on all predisease activities without restrictions. (ECOG) Physical Examination: ENMT - No mouth sores, no thrush, no jaundice, Respiratory - Lungs are clear, Cardiovascular - Regular rate and rhythm of heart, Abdomen - Soft, bowel sounds Present, Extremities - No visible edema. Lab/Imaging: Test performed on Jun 04, 2020 11:15 Sodium 138 mmol/L Potassium 3.7 mmol/L Chloride 100 mmol/L CO2 26 mmol/L Anion Gap 15.7 BUN 17 mg/dL Creatinine 1.0 mg/dL Cr Clearance (Est) 53.2000 mL/min Glucose 106 mg/dL Calcium 8.5 mg/dL Protein, Total 7.1 g/dL Albumin 4.3 g/dL Globulin 2.8 g/dL Bilirubin, Total 0.8 mg/dL ALT (SGPT) 22 U/L AST (SGOT) 25 U/L Alkaline Phosphatase 68 IU/L WBC 6.7 10 3/uL RBC 4.39 10 6/uL HGB 13.1 g/dL HCT 41.5 % MCV 94.5 fL MCH 29.8 pg MCHC 31.6 g/dL RDW 13.2 % Platelet Count 184 10 3/cmm MPV 9.5 fL Neutrophils 4.05 10 3/uL Lymphocytes 2.0 10 3/uL Monocytes 0.5 10 3/uL Eosinophils 0.1 10 3/uL Basophils 0.1 10 3/uL Neutrophil % 60.8 % Lymphocyte % 29.3 % Monocyte % 7.1 % Eosinophil % 1.7 % Basophils % 0.9 % NRBC % 0 % CA 19-9 27.14 U/mL Impression: Moderately differentiated adenocarcinoma of pancreatic head, involving duodenum, with pathology questionable low-grade and high-grade dysplasia with focal signet ring features, suspicious for second bile duct cancer status post Whipple's done on 03/21/2019 final pathology report showed Ductal adenocarcinoma, moderately differentiated, size of tumor 1.6 cm pT1c, 12/28 lymph node positive for cough metastatic disease pN1 Liver biopsy, segment 3, excision shows no evidence of carcinoma. pT1c,N1,Mo next Started on adjuvant chemotherapy with modified dose (20% dose reduction because of advanced age) FOLFIRINOX biweekly ???12 Completed on 10/14/2019 Ygh-bxaifft-xmorieawh diabetes on metformin Plan: Discussed with patient regarding his labs white blood count 7.8 hemoglobin 12.8 hematocrit 39.7 platelets 186,000 CMP within normal limits Clinically, patient is doing well with no signs symptom suggestive of recurrence of disease. The concern was urinary bladder abnormality seen on recent CT scan of abdomen pelvis and patient was referred to urology Dr. Castillo who scheduled him for cystoscopy exam on July 09, 2020 but patient is somewhat reluctant due to personal reasons, patient was explained the reason for cystoscopy as if he has a superficial bladder cancer which can be managed with less invasive therapy and if it shows cystitis or inflammation, he may not need to worry about this anymore, finally patient agreed and now will go for cystoscopy, if is normal then we will see him back in 3 months with CBC CMP and also at his request, will refer him to the surgeon for Port-A-Cath removal Signed By: Najma Mitchell M.D. <<Signature on File>>
== END 2020-07-06 13:44 | disposition home or self-care (01) ==
LOC: ONCMED 13:50
PROVIDERS: PCP Family Medicine; Visit Provider Internal Medicine Hematology & Oncology
DX: Z08 Encounter for follow-up examination after completed treatment for malignant neoplasm (principal); Z85.07 Personal history of malignant neoplasm of pancreas; E11.9 Type 2 diabetes mellitus without complications; Z79.4 Long term (current) use of insulin; Z92.21 Personal history of antineoplastic chemotherapy
CPT/HCPCS: 36591; 80053; 85025; 99214

== ENCOUNTER → 2020-07-09 11:17 | Outpatient (BNVA) | payer MEDICARE, SELFPAY | PROVIDERS: PCP Family Medicine; Referring Provider Internal Medicine Hematology & Oncology; Visit Provider Urology | DX: C25.9 Malignant neoplasm of pancreas, unspecified (principal); N30.91 Cystitis, unspecified with hematuria | CPT/HCPCS: 80053; 81001; 87077; 87086; 87186 ==

== ENCOUNTER → 2020-07-23 07:41 | Outpatient (BNVA) | payer MEDICARE, SELFPAY | PROVIDERS: PCP Family Medicine; Visit Provider Surgery | DX: Z11.59 Encounter for screening for other viral diseases (principal) | CPT/HCPCS: 87635 ==

== ENCOUNTER 2020-07-27 06:58 | Day surgery (SDC) | payer MEDICARE, SELFPAY ==
[2020-07-24 09:13] VITALS: BMI 23.6
[2020-07-27 07:12] VITALS: BP 145/67; PULSE 48; RESP 18; TEMP 36.2; O2SAT 98
[2020-07-27] MEDS: sodium chloride 0.9% 1,000 ML 30 ML IV (07:25)
--- NOTE | 2020-07-27 07:28 | ANES.PREANE2 ---
Pre-Anesthetic Assessment Pre-Anesthetic Assessment: Height/Weight: Height 1.73 m Weight 70.307 kg Temp Pulse Resp BP Pulse Ox 97.2 F L 48 L 18 145/67 98 07/27/20 07:12 07/27/20 07:12 07/27/20 07:12 07/27/20 07:12 07/27/20 07:12 Preop Diagnosis: Port-A-Cath in place Proposed Procedure: Operation Date: 07/27/20 08:40 Proposed Procedures p Portacath Removal 23990 C25.9(Not Applicable) - Nazario Cole MD Familial anesthetic complications: None Was Beta Felipe taken within 24 hours: Yes Last intake: Intake Last Liquid Date 07/26/20 Last Liquid Time 18:00 Last Solid Date 07/26/20 Last Solid Time 18:00 Social: Social History: No alcohol and No tobacco Comment: quit smoking in Exam: Pre-Anes Outpt Exam: alert, oriented x 3, clear to auscultation bilaterally and regular rate & rhythm Airway: Cervical ROM: WNL MP: 2 Dentition: False CV/HEM: CV/HEM: HTN GI: Comments: pancreatic cancer Metabolic: Metabolic: DM and Hyperlipidemia Anesthetic Plan: ASA status: 3 Anesthesia: MAC Risk of > 500 ml blood loss (7ml/kg in children): No Meds/Allergies Current Medications: Current Medications Generic Name Dose Route Start Last Admin Trade Name Freq PRN Reason Stop Dose Admin Sodium Chloride 1,000 mls @ 30 ml s/hr 07/27/20 07:15 07/27/20 07:25 Sodium Chloride 0.9% IV 07/28/20 07:14 30 mls/hr .Q24H CLARY Administration PFSH Anesthesia PFSH: Medical History Cystitis cystica Diabetes Hyperlipidemia Hypertension Pancreatic cancer Surgical History H/O hernia repair H/O knee surgery History of hip surgery History of pancreatic surgery Family History Family/Other No problems noted. Social History (Updated 07/24/20 @ 09:11 by Katiana Felipe) Smoking and tobacco status: former smoker Quit status (tobacco): has quit using tobacco Alcohol intake: former Marital status: / Current occupational status: retired Data Anesthesia Cardiac Studies: No Data to Display
[2020-07-27 07:37] LABS: Glucose Point of Care 117 mg/dL (70-110)
--- NOTE | 2020-07-27 08:12 | W.PM.OPSUD ---
Surgery/Procedure H&P Update DATE OF PROCEDURE: July 27, 2020 DATE H&P PERFORMED: 07/15/20 H&P UPDATE INFORMATION: I have reviewed H&P completed within last 30 days, I have examined patient prior to procedure and No changes to prior documentation PREOP DIAGNOSIS: Port-A-Cath in place PRIMARY INDICATION FOR PROCEDURE: The same PLANNED PROCEDURE: Operation Date: 07/27/20 08:40 Proposed Procedures p Portacath Removal 84920 C25.9(Not Applicable) - Naazrio Cole MD
[2020-07-27] MEDS: lidocaine 2% INJ 20 mL INJECTION (08:54)
--- NOTE | 2020-07-27 08:59 | P.OP_ITS ---
Operative Report Date of procedure: July 27, 2020 Pre-op Diagnosis: Port-A-Cath in place Post-op diagnosis: same Procedure Done: Explantation of right upper chest Port-A-Cath Specimens removed/disposition: Right upper chest Port-A-Cath for gross pathology Surgeon: Nazario Cole Litigation Support Analyst: Yumiko Frazier Circulating nurse Myrna Anesthesia: MAC (textile screen maker Reynold) Estimated blood loss (mL): 5 Condition: stable Disposition: same day Brief History: This is a pleasant 85 years old gentleman with history of pancreatic cancer undergone Whipple procedure in [facility] about a year ago and had a Port-A-Cath at that point. Patient is done with his chemotherapy and he was referred to my practice for explantation of our right upper chest Port-A-Cath. Plan of care; After thorough history physical examination and reviewing the chart, I counseled the patient for Port-A-Cath explantation, indications, risks including pneumothorax and injury of major vascular structures, benefits,indications and alternatives were all discussed with the patient, patient understands and is interested to proceed. Rationale was carefully and clearly discussed with the patient.Appropriate informed consent have been reviewed and signed. Procedure: After identifying the patient in the holding area, informed consent per chart ,patient was then transferred to the operative suite, was placed in supine position, IV propofol was infused by the anesthesia provider and right arm was tucked tucked, prep and drape of the right upper chest region as well as the right side of the neck was done usual sterile technique. Time-out was done verifying the patient's name/date of /planned procedure and destination after the procedure, all were in agreement. I started by injection of lidocaine 2% at the site of the planned incision started by an transverse incision including the previous scar of the catheter placement located at the right upper chest, started by dissection of the port and catheter was then explanted easily, at this point the catheter was removed at the same time direct pressure was applied at the site of the right internal jugular vein stick to prevent bleeding please for 5 minutes. The entire Port-A-Cath was sent for gross pathology Thorough irrigation of the wound cavity was done followed by hemostasis.Closure using 3/0 Vicryl as subdermal sutures was achieved , followed by loose closure using 4-0 Monocryl to approximate skin edges followed by surgical glue Patient tolerated the procedure well, count of instruments,needles and sponges were completed at the end of the procedure.And then patient was transferred to the recovery area in stable condition. I Was present for the whole entire procedure
[2020-07-27 09:04] VITALS: BP 141/73; PULSE 54; RESP 18; TEMP 36.2; O2SAT 93
--- NOTE | 2020-07-27 09:15 | XRR_ITS ---
PROCEDURE INFORMATION: Exam: XR Chest, 1 View Exam date and time: 07/27/2020 9:27 AM Age: 84 years old Clinical indication: Device placement; Other: Right ij port-a-cath; Prior surgery; Surgery date: Post-operative (0-2 days); Additional info: Status post explantation of right ij port-a-cath TECHNIQUE: Imaging protocol: XR of the chest Views: 1 view. COMPARISON: CT Chest/Abdomen/Pelvis w IV* 07/19/2019 10:15 AM FINDINGS: Lungs: Unremarkable. No consolidation. Pleural space: Unremarkable. No pleural effusion. No pneumothorax. Heart/Mediastinum: Unremarkable. No cardiomegaly. Bones/joints: Unremarkable. XR/XR chest 1V portable [id number] IMPRESSION: No acute findings. Chest port has been removed.
[2020-07-27 09:30] VITALS: BP 141/67; PULSE 48; RESP 18; O2SAT 96
--- NOTE | 2020-07-27 09:50 | ANE.PACU2 ---
Inpatient post-anesthesia follow up: Airway intact: Yes Vital signs: Temperature 97.1 F Pulse Rate 54 Respiratory Rate 18 Blood Pressure 141/73 Pulse Oximetry 93 Oxygen Delivery Me thod Room Air Oxygen Flow Rate Fraction of Inspir ed Oxygen Hydration adequate: Yes Nausea and vomiting: No Pain level: 1 Mental status: Baseline
== END 2020-07-27 09:46 | disposition home or self-care (01) ==
PROVIDERS: PCP Family Medicine; Visit Provider Surgery
PROC: (CPT 36589; principal; 2020-07-27 08:40)
DX: Z45.2 Encounter for adjustment and management of vascular access device (principal); E11.9 Type 2 diabetes mellitus without complications; E78.5 Hyperlipidemia, unspecified; I10 Essential (primary) hypertension; Z85.07 Personal history of malignant neoplasm of pancreas; Z79.84 Long term (current) use of oral hypoglycemic drugs; Z92.21 Personal history of antineoplastic chemotherapy; Z87.891 Personal history of nicotine dependence; Z98.890 Other specified postprocedural states
CPT/HCPCS: 36589; 12345; 36416; 71045; 82962; 88300; J0690; J2704; J3010; J7030

== ENCOUNTER → 2020-09-17 09:16 | Outpatient (BNVA) | payer MEDICARE, SELFPAY | PROVIDERS: PCP Family Medicine; Visit Provider Urology | DX: N30.80 Other cystitis without hematuria (principal) | CPT/HCPCS: 81003 ==

== ENCOUNTER 2020-10-16 09:41 | Outpatient (CLI) | payer MEDICARE, SELFPAY ==
[2020-10-16 10:24] LABS: Basophils # 0.1 10^3/uL (0.0-0.1); Basophils % 0.8 %; Eosinophils # 0.3 10^3/uL (0.0-0.8); Eosinophils % 4.6 %; Hemoglobin 13.6 g/dL (11.7-16.6); Lymphocytes # 2.2 10^3/uL (0.8-4.8); Lymphocytes % 35.9 %; Mean Corpuscular HGB Conc 32.4 g/dL (30.0-36.0); Mean Corpuscular Hemoglobin 29.6 pg (28.0-34.0); Mean Corpuscular Volume 91.5 fL (80-94); Mean Platelet Volume 9.6 fL (7.4-10.4); Monocytes # 0.4 10^3/uL (0.2-0.9); Monocytes % 7.2 %; Neutrophils # 3.14 10^3/uL (1.8-7.7); Neutrophils % 51.2 %; Nucleated Red Blood Cells % 0 %; Platelet Count 203 10^3/cmm (130-400); Red Blood Count 4.59 10^6/uL (4.1-5.3); White Blood Count 6.1 10^3/uL (4.0-10.0)
[2020-10-16 10:57] LABS: Alanine Aminotransferase 28 U/L (0-41); Albumin Level 4.2 g/dL (3.5-5.2); Alkaline Phosphatase 70 IU/L (40-130); Anion Gap 12.7 (5-19); Aspartate Amino Transferase 36 U/L (0-40); Blood Urea Nitrogen 15 mg/dL (8-23); Calcium 8.8 mg/dL (8.5-10.5); Carbon Dioxide 28 mmol/L (22-29); Chloride 100 mmol/L (98-107); Globulin 2.5 g/dL (1.3-4.6); Glucose 102 mg/dL (65-115); Osmolality Calculated 285 mOsm/kg (285-295); Potassium 3.7 mmol/L (3.5-5.1); Sodium 137 mmol/L (136-145); Total Bilirubin 0.4 mg/dL (0.15-1.2); Total Protein 6.7 g/dL (6.6-8.7)
--- NOTE | 2020-10-16 11:43 | ONC FU_ITS ---
Dr. Mitchell follow up note Patient: Que Mobley Unit #: [id number]: [id number] Dicatated By: Najma Mitchell M.D.Date of Visit:Oct 16, 2020 Onc Med Follow-up/Prog Note History of Present Illness: Mr. 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 As per patient CT scan of chest abdomen pelvis done on 07/19/2019 showed no evidence of metastatic disease and previously seen pulmonary nodules are stable Follow-up CT scan of abdomen pelvis done on June 04, 2020 showed postoperative changes involving pancreatic head. No evidence of pancreatic head recurrence or residual mass. 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 Postoperative changes involving stomach and cholecystectomy and pancreatic head. Low attenuation lesions in the liver unchanged and most likely represent hepatic cysts. No abdominal or pelvic lymphadenopathy. Stable infrarenal abdominal aortic aneurysm. Plaque-like enhancement involving anterior ventral bladder wall asymmetric in appearance transitional cell carcinoma not excluded. This is similar in appearance to July 2019 scan.Underwent cystoscopy in July 2020 and showed diffuse cystitis cystica, was started on Bactrim DS 1/2 tablet twice a day and he developed side effect like skin rash so it was discontinued and switched to ciprofloxacin 250 mg twice a day by urology. Came for follow-up, denies any specific complaints, no fever chills, no nausea or vomiting, no diarrhea constipation, no abdominal pain, no jaundice, appetite is good, enjoying quality of life. Medications: Atenolol-Chlorthalidone 1 Tablet (of 50-25 mg) Oral daily, Gabapentin 1 Capsule (of 300 mg) Oral four times a day, LORazepam 0.5 - 1 Tablet (of 1 mg) Oral q 6 hours PRN, metFORMIN HCl 1 Tablet (of 500 mg) Oral b.i.d., Prochlorperazine Maleate 1 Tablet (of 10 mg) Oral q 6 hours, Simvastatin 1 Tablet (of 10 mg) Oral daily Allergies: pollen Review of Systems: Constitutional - Appetite is good and weight is stable. No fever, chills, hot flashes, or night sweats. Energy level is good, ENMT - No sinus congestion/drainage. No mouth sores. No sore throat or difficulty swallowing, Hematologic/Lymphatic - Positive for easy bruising and bleeding, Respiratory - No shortness of breath. No cough. No pleuritic pain or hemoptysis, Cardiovascular - No angina pain. No palpitations, Gastrointestinal - No nausea or vomiting. No heartburn or acid reflux. No diarrhea or constipation. No blood in the stool or black stools. Positive for hemorrhoids, Genitourinary (M) - No dysuria or hematuria. No urinary frequency. No urgency or incontinence, Musculoskeletal - No joint or bone pain, Neurologic - No headache or dizziness. No numbness/paresthesias or other focal neurologic symptoms, Psychiatric - No anxiety or depression. No insomnia. Vital Signs: Performed on Oct 16, 2020 11:06 Height - 67.50 in Weight - 160.0 lbs (HIGH) BSA - 1.85 sq.m BMI - 24.69 Temperature - 98.0 F (LOW) Pulse - 47 /min (LOW) Respiration - 18 /min BP - 138/67 mm(hg) O2 Sat - 97 % Pain - 0 Performance Status: 0 - Fully active, able to carry on all predisease activities without restrictions. (ECOG) Physical Examination: ENMT - No mouth sores, no thrush, no jaundice, Respiratory - Lungs are clear to auscultation, Cardiovascular - Regular rate and rhythm of heart, Abdomen - Soft, bowel sounds present, Extremities - No visible edema. Lab/Imaging: Test performed on Oct 16, 2020 10:10 Sodium 137 mmol/L Potassium 3.7 mmol/L Chloride 100 mmol/L CO2 28 mmol/L Anion Gap 12.7 BUN 15 mg/dL Creatinine 1.0 mg/dL Cr Clearance (Est) 52.2900 mL/min Glucose 102 mg/dL Osmolality - Calculated 285 mOsm/kg Calcium 8.8 mg/dL Protein, Total 6.7 g/dL Albumin 4.2 g/dL Globulin 2.5 g/dL Bilirubin, Total 0.4 mg/dL ALT (SGPT) 28 U/L AST (SGOT) 36 U/L Alkaline Phosphatase 70 IU/L WBC 6.1 10 3/uL RBC 4.59 10 6/uL HGB 13.6 g/dL HCT 42.0 % MCV 91.5 fL MCH 29.6 pg MCHC 32.4 g/dL RDW 13.0 % Platelet Count 203 10 3/cmm MPV 9.6 fL Neutrophils 3.14 10 3/uL Lymphocytes 2.2 10 3/uL Monocytes 0.4 10 3/uL Eosinophils 0.3 10 3/uL Basophils 0.1 10 3/uL Neutrophil % 51.2 % Lymphocyte % 35.9 % Monocyte % 7.2 % Eosinophil % 4.6 % Basophils % 0.8 % NRBC % 0 % Test performed on Oct 16, 2020 00:00 Manual Diff Cancelled via OM: Cancelled in Connected System Test performed on Jun 04, 2020 11:15 CA 19-9 27.14 U/mL Impression: Moderately differentiated adenocarcinoma of pancreatic head, involving duodenum, with pathology questionable low-grade and high-grade dysplasia with focal signet ring features, suspicious for second bile duct cancer status post Whipple's done on 03/21/2019 final pathology report showed Ductal adenocarcinoma, moderately differentiated, size of tumor 1.6 cm pT1c, 2 lymph node positive for cough metastatic disease pN1 Liver biopsy, segment 3, excision shows no evidence of carcinoma. pT1c,N1,Mo next Started on adjuvant chemotherapy with modified dose (20% dose reduction because of advanced age) FOLFIRINOX biweekly ???12 Completed on 10/14/2019 [id number] diabetes on metformin Plan: Discussed with patient regarding his labs white blood count 6.1 hemoglobin 13.6 hematocrit 42 platelets 203,000 CMP within normal limits Clinically, patient doing well with no new signs symptoms suggestive of recurrence of disease follow-up lab work-up within normal range. , Recently done CT scan of abdomen pelvis showed plaque-like enhancement involving anterior ventral bladder wall, for which he underwent cystoscopy in July 2020 and was diagnosed with cystitis cystica and was started on oral antibiotics Bactrim DS by urology and patient developed allergic reaction/skin rash, because of that Bactrim DS was discontinued and switched to ciprofloxacin 250 mg twice a day which is tolerating well now being followed by urology. As far as history of pancreatic cancer is concerned, will continue to observe and Return to clinic in 4 months with CBC CMP Signed By: Najma Mitchell M.D. <<Signature on File>>
== END 2020-10-16 09:42 | disposition home or self-care (01) ==
LOC: ONCMED 09:45
PROVIDERS: PCP Family Medicine; Visit Provider Internal Medicine Hematology & Oncology
DX: Z08 Encounter for follow-up examination after completed treatment for malignant neoplasm (principal); Z85.07 Personal history of malignant neoplasm of pancreas; E11.9 Type 2 diabetes mellitus without complications; N30.80 Other cystitis without hematuria; B96.89 Other specified bacterial agents as the cause of diseases classified elsewhere; Z79.2 Long term (current) use of antibiotics; Z79.84 Long term (current) use of oral hypoglycemic drugs; Z92.21 Personal history of antineoplastic chemotherapy
CPT/HCPCS: 36415; 80053; 85025; G0463

== ENCOUNTER 2021-02-23 07:54 | Outpatient (CLI) | payer MEDICARE, SELFPAY ==
[2021-02-23 10:09] LABS: Alanine Aminotransferase 42 U/L (0-41); Albumin Level 4.3 g/dL (3.5-5.2); Alkaline Phosphatase 63 IU/L (40-130); Aspartate Amino Transferase 43 U/L (0-40); Blood Urea Nitrogen 17 mg/dL (8-23); Calcium 8.3 mg/dL (8.5-10.5); Carbon Dioxide 27 mmol/L (22-29); Chloride 97 mmol/L (98-107); Globulin 2.8 g/dL (1.3-4.6); Glucose 110 mg/dL (65-115); Osmolality Calculated 282 mOsm/kg (285-295); Sodium 135 mmol/L (136-145); Total Bilirubin 0.7 mg/dL (0.15-1.2); Total Protein 7.1 g/dL (6.6-8.7)
[2021-02-23 10:10] LABS: Anion Gap 14.9 (5-19); Potassium 3.9 mmol/L (3.5-5.1)
[2021-02-23 10:11] LABS: Basophils % 0.8 %; Eosinophils # 0.2 10^3/uL (0.0-0.8); Hematocrit 42.8 % (42.0-52.0); Hemoglobin 14.1 g/dL (11.7-16.6); Lymphocytes # 1.9 10^3/uL (0.8-4.8); Lymphocytes % 35.8 %; Mean Corpuscular HGB Conc 32.9 g/dL (30.0-36.0); Mean Corpuscular Hemoglobin 30.4 pg (28.0-34.0); Mean Corpuscular Volume 92.2 fL (80-94); Mean Platelet Volume 10.8 fL (7.4-10.4); Monocytes # 0.5 10^3/uL (0.2-0.9); Monocytes % 9.2 %; Neutrophils # 2.71 10^3/uL (1.8-7.7); Nucleated Red Blood Cells % 0 %; Platelet Count 173 10^3/cmm (130-400); Red Blood Count 4.64 10^6/uL (4.1-5.3); Red Cell Distribution Width 13.5 % (12.1-15.1); White Blood Count 5.3 10^3/uL (4.0-10.0)
--- NOTE | 2021-02-24 17:23 | ONC FU_ITS ---
Dr. Mitchell follow up note Patient: Que Mobley Unit #: [id number]: 1935 Dicatated By: Najma Mitchell M.D.Date of Visit:Feb 23, 2021 Onc Med Follow-up/Prog Note History of Present Illness: Mr. 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 As per patient CT scan of chest abdomen pelvis done on 07/19/2019 showed no evidence of metastatic disease and previously seen pulmonary nodules are stable Follow-up CT scan of abdomen pelvis done on June 04, 2020 showed postoperative changes involving pancreatic head. No evidence of pancreatic head recurrence or residual mass. 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 Postoperative changes involving stomach and cholecystectomy and pancreatic head. Low attenuation lesions in the liver unchanged and most likely represent hepatic cysts. No abdominal or pelvic lymphadenopathy. Stable infrarenal abdominal aortic aneurysm. Plaque-like enhancement involving anterior ventral bladder wall asymmetric in appearance transitional cell carcinoma not excluded. This is similar in appearance to July 2019 scan.Underwent cystoscopy in July 2020 and showed diffuse cystitis cystica, was started on Bactrim DS 1/2 tablet twice a day and he developed side effect like skin rash so it was discontinued and switched to ciprofloxacin 250 mg twice a day by urology. came for follow-up, denies any specific complaints, no fever chills, no nausea or vomiting, no diarrhea or constipation, no abdominal pain, no jaundice, appetite is good, gaining weight, patient got his Port-A-Cath removed earlier Medications: Atenolol-Chlorthalidone 1 Tablet (of 50-25 mg) Oral daily, Gabapentin 1 Capsule (of 300 mg) Oral four times a day, LORazepam 0.5 - 1 Tablet (of 1 mg) Oral q 6 hours PRN, metFORMIN HCl 1 Tablet (of 500 mg) Oral b.i.d., Prochlorperazine Maleate 1 Tablet (of 10 mg) Oral q 6 hours, Simvastatin 1 Tablet (of 10 mg) Oral daily Allergies: pollen Review of Systems: Review of Systems is not available for this patient. Vital Signs: Performed on Feb 23, 2021 09:51 Height - 67.50 in Weight - 157.8 lbs (LOW) BSA - 1.84 sq.m BMI - 24.35 Temperature - 97.8 F (LOW) Pulse - 70 /min Respiration - 18 /min BP - 155/73 mm(hg) (HIGH) O2 Sat - 96 % Pain - 0 Fatigue - 0 Performance Status: 0 - Fully active, able to carry on all predisease activities without restrictions. (ECOG) Physical Examination: ENMT - No mouth sores, no thrush, no jaundice, Respiratory - Lungs are clear to auscultation, Cardiovascular - Regular rate and rhythm of heart ., Abdomen, soft, bowel sounds present, Extremities - No visible edema. Lab/Imaging: Test performed on Oct 16, 2020 10:10 Sodium 137 mmol/L Potassium 3.7 mmol/L Chloride 100 mmol/L CO2 28 mmol/L Anion Gap 12.7 BUN 15 mg/dL Creatinine 1.0 mg/dL Cr Clearance (Est) 52.2900 mL/min Glucose 102 mg/dL Osmolality - Calculated 285 mOsm/kg Calcium 8.8 mg/dL Protein, Total 6.7 g/dL Albumin 4.2 g/dL Globulin 2.5 g/dL Bilirubin, Total 0.4 mg/dL ALT (SGPT) 28 U/L AST (SGOT) 36 U/L Alkaline Phosphatase 70 IU/L WBC 6.1 10 3/uL RBC 4.59 10 6/uL HGB 13.6 g/dL HCT 42.0 % MCV 91.5 fL MCH 29.6 pg MCHC 32.4 g/dL RDW 13.0 % Platelet Count 203 10 3/cmm MPV 9.6 fL Neutrophils 3.14 10 3/uL Lymphocytes 2.2 10 3/uL Monocytes 0.4 10 3/uL Eosinophils 0.3 10 3/uL Basophils 0.1 10 3/uL Neutrophil % 51.2 % Lymphocyte % 35.9 % Monocyte % 7.2 % Eosinophil % 4.6 % Basophils % 0.8 % NRBC % 0 % Test performed on Oct 16, 2020 00:00 Manual Diff Cancelled via OM: Cancelled in Connected System Impression: Moderately differentiated adenocarcinoma of pancreatic head, involving duodenum, with pathology questionable low-grade and high-grade dysplasia with focal signet ring features, suspicious for second bile duct cancer status post Whipple's done on 03/21/2019 final pathology report showed Ductal adenocarcinoma, moderately differentiated, size of tumor 1.6 cm pT1c, 12/28 lymph node positive for cough metastatic disease pN1 Liver biopsy, segment 3, excision shows no evidence of carcinoma. pT1c,N1,Mo next Started on adjuvant chemotherapy with modified dose (20% dose reduction because of advanced age) FOLFIRINOX biweekly ???12 Completed on 10/14/2019 [id number] diabetes on metformin Plan: Discussed with patient regarding his labs white blood count 5.3 hemoglobin 14.1 hematocrit 42.8 platelets 173,000 CMP within normal limits Clinically, patient doing well with no new signs symptoms history of recurrence of disease., Will continue to monitor, he will return to clinic in 4 months with CBC CMP and follow-up CT scan of abdomen Signed By: Najma Mitchell M.D. <<Signature on File>>
== END 2021-02-23 07:55 | disposition home or self-care (01) ==
PROVIDERS: PCP Family Medicine; Visit Provider Internal Medicine Hematology & Oncology
DX: C25.0 Malignant neoplasm of head of pancreas (principal); C78.7 Secondary malignant neoplasm of liver and intrahepatic bile duct; C77.8 Secondary and unspecified malignant neoplasm of lymph nodes of multiple regions; E11.9 Type 2 diabetes mellitus without complications; Z79.4 Long term (current) use of insulin; Z79.899 Other long term (current) drug therapy
CPT/HCPCS: 36415; 80053; 85025; 99214

== ENCOUNTER 2021-06-28 10:51 | Outpatient (CLI) | payer MEDICARE, SELFPAY ==
[2021-06-28 11:41] LABS: Basophils # 0.1 10^3/uL (0.0-0.1); Basophils % 0.9 %; Eosinophils # 0.2 10^3/uL (0.0-0.8); Eosinophils % 3.1 %; Hematocrit 42.2 % (42.0-52.0); Hemoglobin 13.6 g/dL (11.7-16.6); Lymphocytes # 2.8 10^3/uL (0.8-4.8); Lymphocytes % 40.7 %; Mean Corpuscular HGB Conc 32.2 g/dL (30.0-36.0); Mean Corpuscular Hemoglobin 29.6 pg (28.0-34.0); Mean Corpuscular Volume 91.7 fl (80-94); Mean Platelet Volume 10.7 fL (7.4-10.4); Monocytes # 0.6 10^3/uL (0.2-0.9); Monocytes % 8.8 %; Neutrophils # 3.16 10^3/uL (1.8-7.7); Neutrophils % 46.4 %; Nucleated Red Blood Cells % 0 %; Platelet Count 164 10^3/cmm (130-400); Red Cell Distribution Width 13.1 % (12.1-15.1); White Blood Count 6.8 10^3/uL (4.0-10.0)
[2021-06-28 11:58] LABS: Alanine Aminotransferase 28 U/L (0-41); Albumin Level 4.2 g/dL (3.5-5.2); Alkaline Phosphatase 67 IU/L (40-130); Anion Gap 14.1 (5-19); Aspartate Amino Transferase 32 U/L (0-40); Blood Urea Nitrogen 15 mg/dL (8-23); Calcium 8.4 mg/dL (8.5-10.5); Carbon Dioxide 28 mmol/L (22-29); Chloride 99 mmol/L (98-107); Globulin 2.7 g/dL (1.3-4.6); Glucose 100 mg/dL (65-115); Osmolality Calculated 285 mOsm/kg (285-295); Potassium 4.1 mmol/L (3.5-5.1); Sodium 137 mmol/L (136-145); Total Bilirubin 0.7 mg/dL (0.15-1.2); Total Protein 6.9 g/dL (6.6-8.7)
--- NOTE | 2021-06-28 15:57 | ONC FU_ITS ---
Dr. Mitchell follow up note Patient: Que Mobley Unit #: [id number]: 1935 Dicatated By: Najma Mitchell M.D.Date of Visit:Jun 28, 2021 Onc Med Follow-up/Prog Note History of Present Illness: Mr. 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 As per patient CT scan of chest abdomen pelvis done on 07/19/2019 showed no evidence of metastatic disease and previously seen pulmonary nodules are stable Follow-up CT scan of abdomen pelvis done on June 04, 2020 showed postoperative changes involving pancreatic head. No evidence of pancreatic head recurrence or residual mass. 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 Postoperative changes involving stomach and cholecystectomy and pancreatic head. Low attenuation lesions in the liver unchanged and most likely represent hepatic cysts. No abdominal or pelvic lymphadenopathy. Stable infrarenal abdominal aortic aneurysm. Plaque-like enhancement involving anterior ventral bladder wall asymmetric in appearance transitional cell carcinoma not excluded. This is similar in appearance to July 2019 scan.Underwent cystoscopy in July 2020 and showed diffuse cystitis cystica, was started on Bactrim DS 1/2 tablet twice a day and he developed side effect like skin rash so it was discontinued and switched to ciprofloxacin 250 mg twice a day by urology. Came for follow-up, denies any specific complaints, no fever chills, no nausea or vomiting, no diarrhea constipation, no abdominal pain, no jaundice, appetite is good, weight is stable, patient was scheduled for follow-up CT scan of abdomen pelvis but he could not get it done because of personal reasons now requesting for reschedule Medications: Atenolol-Chlorthalidone 1 Tablet (of 50-25 mg) Oral daily, Gabapentin 1 Capsule (of 300 mg) Oral four times a day, LORazepam 0.5 - 1 Tablet (of 1 mg) Oral q 6 hours PRN, metFORMIN HCl 1 Tablet (of 500 mg) Oral b.i.d., Prochlorperazine Maleate 1 Tablet (of 10 mg) Oral q 6 hours, Simvastatin 1 Tablet (of 10 mg) Oral daily Allergies: pollen Review of Systems: Review of Systems is not available for this patient. Vital Signs: Performed on Jun 28, 2021 12:37 Height - 67.50 in Weight - 157.8 lbs BSA - 1.84 sq.m BMI - 24.35 Temperature - 97.1 F (LOW) Pulse - 48 /min (LOW) Respiration - 18 /min BP - 169/50 mm(hg) (HIGH) O2 Sat - 94 % (LOW) Pain - 0 Fatigue - 0 Performance Status: 0 - Fully active, able to carry on all predisease activities without restrictions. (ECOG) Physical Examination: ENMT - No mouth sores, no thrush, no jaundice, Respiratory - Lungs are clear to auscultation, Cardiovascular - Regular rate and rhythm of heart, Abdomen - Soft, bowel sounds present, Extremities - No visible edema. Lab/Imaging: Most recent lab results are not available for this patient. Impression: Moderately differentiated adenocarcinoma of pancreatic head, involving duodenum, with pathology questionable low-grade and high-grade dysplasia with focal signet ring features, suspicious for second bile duct cancer status post Whipple's done on 03/21/2019 final pathology report showed Ductal adenocarcinoma, moderately differentiated, size of tumor 1.6 cm pT1c, 12/28 lymph node positive for cough metastatic disease pN1 Liver biopsy, segment 3, excision shows no evidence of carcinoma. pT1c,N1,Mo next Started on adjuvant chemotherapy with modified dose (20% dose reduction because of advanced age) FOLFIRINOX biweekly ???12 Completed on 10/14/2019 Klr-vrgqvce-mhpzyvooj diabetes on metformin Plan: Discussed patient regarding his labs white blood count 6.8 hemoglobin 13.6 hematocrit 42.2 platelets 164,000 CMP within normal limits Clinically, patient doing well with no new signs symptoms history of recurrence of disease his lab work-up is within normal range, at this point, will schedule him for a follow-up CT scan of abdomen pelvis and then he will return to clinic in 1 month for further discussion Signed By: Najma Mitchell M.D. <<Signature on File>>
== END 2021-06-28 10:52 | disposition home or self-care (01) ==
LOC: ONCMED 10:54
PROVIDERS: PCP Family Medicine; Visit Provider Internal Medicine Hematology & Oncology
DX: Z08 Encounter for follow-up examination after completed treatment for malignant neoplasm (principal); Z85.07 Personal history of malignant neoplasm of pancreas; E11.9 Type 2 diabetes mellitus without complications; Z92.21 Personal history of antineoplastic chemotherapy; Z79.84 Long term (current) use of oral hypoglycemic drugs; Z79.899 Other long term (current) drug therapy
CPT/HCPCS: 36415; 80053; 85025; 99214

== ENCOUNTER 2021-07-05 08:48 | Outpatient (CLI) | payer MEDICARE, SELFPAY ==
--- NOTE | 2021-07-05 08:54 | CT_ITS ---
WS: [id number] CT ABDOMEN CONTRAST TECHNIQUE: Contrast enhanced CT of the abdomen with coronal and sagittal reformatted images. CLINICAL INFORMATION: MALIGNANT NEOPLASM F HEAD OF PANCREAS COMPARISON: CT June 04, 2020, CT and DLP: 670.[address] scans at [facility] use at least one of these dose optimization techniques: automat ed exposure control; mA and/or kV adjustment per patient size (includes targeted exams where dose is matched to clinical indication); or iterative reconstruction. FINDINGS: Diffuse fatty infiltration the liver. Small low-attenuation hepatic lesions likely hepatic cysts. The se are unchanged. Largest measures 10 mm is stable. Some of these are too small to characterize. Port al vein and splenic vein are patent. Prior cholecystectomy. Incidental benign pneumobilia. Postoperative changes involving the stomach and pancreatic head. No evidence of pancreatic head recurrence or residual mass. Stable atrophic pancrea tic parenchyma with cystic lobulated lesion involving the pancreatic tail likely IPMN or mucinous cys tic neoplasm. Stable postoperative changes pancreatic head. Stable slightly aneurysmal infrarenal abdominal aorta measuring 3.1 x 3.4 CM with eccentric mural thr ombus. Normal adrenal glands. No hydronephrosis. Stable renal cysts. Normal renal parenchymal enhancement. N o adenopathy in the abdomen or pelvis. Lumbar scoliosis convex right. Disc space narrowing worse at L3-L4. Lung bases are well aerated. Left OSIEL on the belt operator imaging. CT/CT abdomen w con* [id number] IMPRESSION: 1. Stable postoperative changes involving the pancreatic head. No evidence of pancreatic head recurrence or residual mass. 2. 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 3. Mild lobulated pancreatic ductal dilatation unchanged. 4. Postoperative changes involving the stomach and pancreatic head. Prior chol ecystectomy. 5. Stable low-attenuation lesions in the liver unchanged and most likely repre sent hepatic cysts. Some are too small to characterize. Largest lesion in the c audate measuring 10 mm is stable. 6. No abdominal or pelvic lymphadenopathy. 7. Stable infrarenal abdominal aortic aneurysm.
[2021-07-05] MEDS: iohexol 300 mg/mL 50 mL Btl PO (09:38)
[2021-07-05] MEDS: iohexol 300 mg/mL 100 mL Btl IV (10:02)
== END 2021-07-05 08:49 | disposition home or self-care (01) ==
PROVIDERS: PCP Family Medicine; Visit Provider Internal Medicine Hematology & Oncology
DX: C25.0 Malignant neoplasm of head of pancreas (principal); I71.4 Abdominal aortic aneurysm, without rupture; K76.9 Liver disease, unspecified; K86.89 Other specified diseases of pancreas
CPT/HCPCS: 74160; Q9967

== ENCOUNTER 2023-05-03 07:58 | Oncology outpatient (recurring) (ONCR) | payer MEDICARE, SELFPAY ==
[2023-05-03 08:26] VITALS: BP 144/65; PULSE 61; RESP 16; TEMP 36.3; O2SAT 99
[2023-05-03 08:37] LABS: Basophils # 0.1 10^3/uL (0.0-0.1); Basophils % 0.6 %; Eosinophils # 0.2 10^3/uL (0.0-0.8); Eosinophils % 1.6 %; Hemoglobin 12.1 g/dL (11.7-16.6); Lymphocytes # 1.8 10^3/uL (0.8-4.8); Lymphocytes % 18.9 %; Mean Corpuscular HGB Conc 32.7 g/dL (30.0-36.0); Mean Corpuscular Hemoglobin 29.7 pg (28.0-34.0); Mean Corpuscular Volume 90.7 fl (80-94); Mean Platelet Volume 9.9 fL (7.4-10.4); Monocytes # 0.6 10^3/uL (0.2-0.9); Monocytes % 6.4 %; Neutrophils # 6.64 10^3/uL (1.8-7.7); Neutrophils % 71.6 %; Nucleated Red Blood Cells % 0 %; Platelet Count 372 10^3/cmm (130-400); Red Blood Count 4.08 10^6/uL (4.1-5.3); Red Cell Distribution Width 12.8 % (12.1-15.1); White Blood Count 9.3 10^3/uL (4.0-10.0)
[2023-05-03 09:11] LABS: Alanine Aminotransferase 27 U/L (0-41); Albumin Level 3.4 g/dL (3.5-5.2); Alkaline Phosphatase 75 U/L (40-130); Anion Gap 12.4 (5-19); Aspartate Amino Transferase 28 U/L (0-40); Blood Urea Nitrogen 13 mg/dL (8-23); Calcium 8.1 mg/dL (8.5-10.5); Cancer Antigen 19 9 172.1 U/mL (0-35); Carbon Dioxide 27 mmol/L (22-29); Chloride 99 mmol/L (98-107); Globulin 2.9 g/dL (1.3-4.6); Glucose 170 mg/dL (65-115); Osmolality Calculated 284 mOsm/kg (285-295); Potassium 3.4 mmol/L (3.5-5.1); Sodium 135 mmol/L (136-145); Total Bilirubin 0.4 mg/dL (0.15-1.2); Total Protein 6.3 g/dL (6.6-8.7)
== END 2023-05-05 23:59 | disposition home or self-care (01) ==
PROVIDERS: PCP Family Medicine; Visit Provider Internal Medicine Hematology & Oncology
DX: Z08 Encounter for follow-up examination after completed treatment for malignant neoplasm (principal); Z85.07 Personal history of malignant neoplasm of pancreas; R63.4 Abnormal weight loss; Z68.1 Body mass index [BMI] 19.9 or less, adult; R97.8 Other abnormal tumor markers; E87.6 Hypokalemia; Z79.899 Other long term (current) drug therapy
CPT/HCPCS: 36415; 80053; 85025; 86301; 99214

== ENCOUNTER 2023-05-13 05:58 | Outpatient (CLI) | payer MEDICARE, SELFPAY ==
--- NOTE | 2023-05-13 11:30 | PETR_ITS ---
PROCEDURE INFORMATION: Exam: PET/CT Skull Base to Mid-thigh Exam date and time: 05/13/2023 11:45 AM Age: 87 years old Clinical indication: Condition or disease; Primary cancer: Pancreatic cancer; Follow-up oncological assessment; Additional info: Follow up, juan pablo LABS AND CLINICAL REPORTS: Glucose: 148 mg/dl Treatment strategy for malignancy (PET staging): Restaging (PS) TECHNIQUE: Imaging protocol: Following at least four-hour fasting and following the injection of radiopharmaceutical, low dose CT images were obtained. Then, PET images were obtained. Attenuation corrected images were constructed using the CT scan. Fused images of PET and CT were reviewed. The standardized uptake values (SUV) reported below are maximum values within a region of interest, expressed in gm/ml. Exam includes orbital meatal line to mid-thigh. Radiopharmaceutical: 15.26 mCi F-18 FDG (Fluorodeoxyglucose), IV. Time of imaging post radiopharmaceutical administration: 1 hour Injection site: Left antecubital COMPARISON: CT abdomen w con* [id number] 07/05/2021 10:00 AM, CT chest, abdomen and pelvis 07/19/2019 FINDINGS: Brain: Visualized brain has normal physiologic uptake. Pharynx: No abnormal uptake. Larynx: No abnormal uptake. Lungs, pleura and trachea: No abnormal uptake. Heart: Normal physiologic uptake. Mediastinal space: No abnormal uptake. Liver: No abnormal uptake. Gallbladder and bile ducts: Cholecystectomy clips are present. Pancreas: Moderate dilatation of the pancreatic duct is noted, greatest in the tail, measuring up to 1.1 cm. Focal abnormal uptake is identified in the inferior pancreatic tail in this region, SUV max 7.2 without evidence of a well-defined solid lesion. Cystic changes in the pancreatic tail is region appear increased compared with 07/05/2021. An additional region of abnormal uptake is identified in the region of the junction of the pancreatic tail and body adjacent to surgical clips on series 4, image 85, SUV max 4.2. Spleen: No abnormal uptake. Adrenal glands: No abnormal uptake. Kidneys and ureters: A non radiotracer avid rounded fluid density structure in the right renal inferior pole is compatible with a benign cyst measuring 1.3 cm in diameter on series 3, image 96. Stomach and bowel: A proximal gastric staple line is noted. Elevated uptake is identified along the medial aspect of the stomach where there is an additional staple line in the body on PET series 4, image 83, SUV max 5.9, associated with possible wall thickening on CT series 3, image 84. Vasculature: No abnormal uptake. Diffuse atherosclerotic changes are noted, including within the coronary arteries. Similar appearance of focal aneurysmal dilatation of the junction of the distal abdominal aorta with the left common iliac artery. Lymph nodes: Mild uptake is noted in the region of the mediastinum and left hilar region, possibly within small lymph nodes which are not well defined without intravenous contrast. For example, in the subcarinal space, elevated uptake demonstrates an SUV max 3.9 and left hilar uptake demonstrates an SUV max 3.5. Bones/joints: No abnormal uptake in the visualized axial and appendicular skeleton. [id number] degenerative vertebral body spondylosis is noted. Mild curvature of the lumbar spine convex to the right is noted. A left hip prosthesis appears intact. Soft tissues: No abnormal uptake in the visualized head, neck, chest, abdomen, pelvis, and extremities. METRICS: Mediastinal blood pool: SUV max 2.3 [facility] SUB[facility] [id number] IMPRESSION: 1. Areas of abnormal uptake in the pancreatic head and tail are noted concerning for malignancy. 2. A focal region of abnormal uptake is identified in the medial aspect of the body of the stomach with possible associated wall thickening adjacent to a surgical staple line. Neoplastic involvement cannot be excluded. 3. Mild uptake in the region of the mediastinum and left hilar region is noted possibly within small lymph nodes which are not well defined without intravenous contrast.This may be reactive, secondary to infectious or inflammatory involvement. Neoplastic involvement cannot be entirely excluded. 4. Additional nonurgent findings as detailed above.
== END 2023-05-13 05:59 | disposition home or self-care (01) ==
LOC: RAD 05-15 05:58
PROVIDERS: PCP Family Medicine; Visit Provider Internal Medicine Hematology & Oncology
DX: C25.0 Malignant neoplasm of head of pancreas (principal)
CPT/HCPCS: 78815; A9552

== ENCOUNTER 2023-06-01 11:31 | Oncology outpatient (recurring) (ONCR) | payer MEDICARE, SELFPAY ==
[2023-06-01 11:36] VITALS: BP 120/66; PULSE 86; RESP 18; TEMP 37.1; O2SAT 98
[2023-06-01 12:23] LABS: Alanine Aminotransferase 20 U/L (0-41); Albumin Level 3.1 g/dL (3.5-5.2); Alkaline Phosphatase 64 U/L (40-130); Anion Gap 12.3 (5-19); Aspartate Amino Transferase 20 U/L (0-40); Blood Urea Nitrogen 14 mg/dL (8-23); Calcium 7.9 mg/dL (8.5-10.5); Cancer Antigen 19 9 605.5 U/mL (0-35); Carbon Dioxide 27 mmol/L (22-29); Chloride 100 mmol/L (98-107); Globulin 2.7 g/dL (1.3-4.6); Glucose 349 mg/dL (65-115); Osmolality Calculated 294 mOsm/kg (285-295); Potassium 4.3 mmol/L (3.5-5.1); Sodium 135 mmol/L (136-145); Total Bilirubin 0.4 mg/dL (0.15-1.2); Total Protein 5.8 g/dL (6.6-8.7)
== END 2023-06-05 23:59 | disposition home or self-care (01) ==
PROVIDERS: PCP Family Medicine; Visit Provider Internal Medicine Hematology & Oncology
DX: Z08 Encounter for follow-up examination after completed treatment for malignant neoplasm (principal); Z85.07 Personal history of malignant neoplasm of pancreas; K76.89 Other specified diseases of liver; Z92.21 Personal history of antineoplastic chemotherapy; R97.8 Other abnormal tumor markers
CPT/HCPCS: 36415; 80053; 86301; 99214